=== PATIENT | female | born 1955 | race Caucasian/White ===

== ENCOUNTER 2017-06-09 15:11 | Emergency (ER) | payer MEDICAID, OTHER ==
[~2017-06-09] VITALS: Ht 170.2 cm; Wt 72.6 kg
[2017-06-09 15:20] VITALS: BP 95/67
--- NOTE | 2017-06-09 15:52 | NUR ---
XRAY AT BS
== END 2017-06-09 17:33 | disposition home or self-care (01) ==
LOC: ER 15:21
DX: J18.9 Pneumonia, unspecified organism (principal); H33.8 Other retinal detachments; Z88.1 Allergy status to other antibiotic agents
CPT/HCPCS: 71045-TC; A4606; Z7610

== ENCOUNTER 2018-06-21 14:03 | Emergency (ER) | payer OTHER ==
[~2018-06-21] VITALS: Ht 170.2 cm; Wt 68.5 kg
[2018-06-21 14:09] VITALS: BP 156/76
[2018-06-21] MEDS ORDERED: LIDOCAINE 1% INJ 50 ML MDV IJ ONE (14:25)
[2018-06-21] MEDS ORDERED: TDAP [DIPH/PERTUSSIS/TET] 0.5 ML VIAL IM ONE ×2 (14:26→14:30)
[2018-06-21] MEDS ORDERED: LIDOCAINE HCL/PF 1% 30 ML VIAL TP ONE (14:30)
--- NOTE | 2018-06-21 14:34 | NUR ---
SUTURING DONE BY BEE CHRISTENSEN.
== END 2018-06-21 15:47 | disposition home or self-care (01) ==
LOC: ER 14:03
DX: S61.011A Laceration without foreign body of right thumb without damage to nail, initial encounter (principal); Z98.890 Other specified postprocedural states; Z88.1 Allergy status to other antibiotic agents; W22.8XXA Striking against or struck by other objects, initial encounter; Y93.89 Activity, other specified; Y92.89 Other specified places as the place of occurrence of the external cause; Y99.8 Other external cause status
CPT/HCPCS: 90715; A6402; A6403; J3490

== ENCOUNTER 2018-07-02 13:57 | Emergency (ER) | payer OTHER ==
[~2018-07-02] VITALS: Ht 170.2 cm; Wt 79.4 kg
[2018-07-02 13:57] VITALS: BP 119/80
--- NOTE | 2018-07-02 14:24 | NUR ---
SUTURE REMOVED. Patient discharged to home in stable condition. Written and verbal after care instructions given. Patient verbalizes understanding of instruction.
== END 2018-07-02 14:25 | disposition home or self-care (01) ==
LOC: ER 13:59
DX: S61.011D Laceration without foreign body of right thumb without damage to nail, subsequent encounter (principal); Z98.890 Other specified postprocedural states; Z88.8 Allergy status to other drugs, medicaments and biological substances; X58.XXXD Exposure to other specified factors, subsequent encounter
CPT/HCPCS: 99281; A4606; Z7502

== ENCOUNTER 2019-05-16 15:55 | Emergency (ER) | payer OTHER ==
[~2019-05-16] VITALS: Ht 170.2 cm; Wt 81.6 kg
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
[2019-05-16 17:47] VITALS: BP 115/71
--- NOTE | 2019-05-16 17:48 | NUR ---
Patient discharged to home in stable condition. Written and verbal after care instructions given. Patient verbalizes understanding of instruction.
== END 2019-05-16 17:47 | disposition home or self-care (01) ==
LOC: ER 15:58
DX: S20.211A Contusion of right front wall of thorax, initial encounter (principal); M19.90 Unspecified osteoarthritis, unspecified site; Z98.890 Other specified postprocedural states; Z88.2 Allergy status to sulfonamides; Z88.6 Allergy status to analgesic agent; Z88.1 Allergy status to other antibiotic agents; W01.0XXA Fall on same level from slipping, tripping and stumbling without subsequent striking against object, initial encounter; Y93.89 Activity, other specified; Y92.89 Other specified places as the place of occurrence of the external cause; Y99.8 Other external cause status
CPT/HCPCS: 71100-TC

== ENCOUNTER 2020-12-20 14:22 | Emergency (ER) | payer OTHER ==
[~2020-12-20] VITALS: Ht 172.7 cm; Wt 81.6 kg
--- NOTE | 2020-12-20 14:57 | NUR ---
The patient bibs for not feeling well last couple days. C/O weak/dizzy, have a cold sore on my mouth. Denies pain. In room air and denies SOB. Respiration regular and unlabored. Will continue to monitor the patient.
[2020-12-20] MEDS ORDERED: ACETAMINOPHEN 650 MG/20.3 ML UDC PO ONE (15:00)
[2020-12-20] MEDS ORDERED: ACETAMINOPHEN 650 MG/20.3 ML UDC ONE (15:05)
--- NOTE | 2020-12-20 15:26 | NUR ---
COVID SWAB DONE AND SENT TO THE LAB
[2020-12-20] MEDS ORDERED: ACYC5CRE2 TP (15:48)
--- NOTE | 2020-12-20 16:17 | NUR ---
Patient discharged to home in stable condition. Written and verbal after care instructions given. Patient verbalizes understanding of instruction.
[2020-12-20 16:18] VITALS: BP 112/72
== END 2020-12-20 16:18 | disposition home or self-care (01) ==
LOC: ER 14:27
DX: J06.9 Acute upper respiratory infection, unspecified (principal); Z20.822 Contact with and (suspected) exposure to COVID-19; B00.1 Herpesviral vesicular dermatitis; Z88.6 Allergy status to analgesic agent; Z88.2 Allergy status to sulfonamides; M19.90 Unspecified osteoarthritis, unspecified site
CPT/HCPCS: 71045; 99284; C9803; U0003